=== PATIENT | female | born 1980 | race Caucasian/White ===

== ENCOUNTER 2023-01-12 10:01 | Emergency (ER) | payer OTHER, SELFPAY ==
[2023-01-12 10:13] VITALS: BP 138/76; PULSE 78; RESP 14; TEMP 36.6; O2SAT 98
--- NOTE | 2023-01-12 10:43 | ED.URI ---
HPI - URI/Sore Throat General Chief Complaint: Upper Respiratory Infection Stated Complaint: Cough/Shortness of Breath Time Seen by Provider: 01/12/23 10:10 Source: patient and RN notes reviewed History of Present Illness HPI Narrative: Patient is a 42-year-old female who presents to urgent care with complaints of cough and shortness of breath that started on Sunday. Patient states that she has had a runny nose and some bilateral ear discomfort for the last week. Patient does have a history of asthma and has been using her nebulizer and inhalers. Denies any known fever, nausea or vomiting. Denies any use of [id number] medication. No other acute complaints. No acute distress noted. Patient aware of the plan of care. Some parts of this dictation were generated by voice recognition software and may contain typographical and/or grammatical inaccuracies. Related Data Home Medications Medication Instructions Recorded Confirmed albuterol sulfate 90 mcg/actuation 90 mcg inhalation Q4-6H PRN 01/12/23 01/12/23 aerosol inhaler Wheezing fluticasone 250 mcg-salmeterol 50 50 inh inhalation Q4-6H PRN 01/12/23 01/12/23 mcg/dose blistr powdr for Wheezing inhalation Allergies Allergy/AdvReac Type Severity Reaction Status Date / Time No Known Allergies Allergy Unknown Verified 01/29/06 06:49 Review of Systems Review of Systems: CONSTITUTIONAL: Denies fever, chills, or sweats. EYES: Denies visual changes, redness, or discharge. ENT: Reports rhinorrhea, postnasal drainage bilateral ear discomfort CARDIOVASCULAR: Denies chest pain, palpitations, or edema. RESPIRATORY: Reports a productive cough with intermittent dyspnea GASTROINTESTINAL: Denies abdominal pain, nausea, vomiting, or diarrhea. GENITOURINARY: Denies dysuria or hematuria. SKIN: Denies rash or itching. MUSCULOSKELETAL: Denies back pain, joint pain, or myalgia. NEUROLOGIC: Denies headache, numbness, or weakness. All other systems reviewed are negative, except as documented in HPI. [facility] Family History Family History (Updated 11/08/15 @ 15:26 by DOCTOR UNKNOWN) Father Family history of gout Hypertension Family history of Parkinson's disease, Onset Age: 67 Patient's father is Mother Hypertension Social History Social History Smoking status: Never smoker Alcohol intake: never Comments At the time of my signature, I reviewed and agree with the nursing past medical, surgical, social, and family history. There is no relevant family history pertinent to the patient complaint. Exam Narrative: GENERAL: This is a well-nourished, well-developed patient, in no apparent distress. HEAD: normocephalic, atraumatic. EYES: PERRL. Sclera clear/white. Vision is grossly intact. EARS: External ears normal, auditory canals clear and without drainage, retracted, erythema to right TM with effusion. Left TM normal without perforation. Hearing grossly intact. NOSE: External nose normal with no obvious nasal discharge, nares without redness, clear rhinorrhea. THROAT: Mucous membranes moist, posterior pharynx clear. Moderate postnasal drainage NECK: Neck supple, non-tender without lymphadenopathy CARDIOVASCULAR: Regular rate and rhythm RESPIRATORY: Clear to auscultation. Breath sounds equal bilaterally. Tight lung sounds without wheezes SKIN: warm, intact with no suspicious lesions or rash, good texture and turgor. NEURO: awake, alert, and oriented to person, place and time. There were no obvious focal neurologic abnormalities. EXTREMITIES: No clubbing, cyanosis, or edema Course Course Level of Care: Express Care Visit Vital Signs Vital signs: Vital Signs Temperature 98 F 01/12/23 10:13 Pulse Rate 78 01/12/23 10:13 Respiratory Rate 14 01/12/23 10:13 Blood Pressure 138/76 01/12/23 10:13 Pulse Oximetry 98 01/12/23 10:13 Oxygen Delivery Room Air 01/12/23 10:13 Temperature 98 F 01/12/23 10:13 Pulse
== END 2023-01-12 11:01 | disposition home or self-care (01) ==
PROVIDERS: Emergency Provider Nurse Practitioner Family
DX: H66.91 Otitis media, unspecified, right ear (principal); J32.9 Chronic sinusitis, unspecified
CPT/HCPCS: 99213; G0463